=== PATIENT | male | born 1955 | race Caucasian/White ===

== ENCOUNTER 2019-05-05 23:35 | Emergency (ER) | payer OTHER, SELFPAY ==
[2019-05-05] MEDS ORDERED: NA CHLORIDE 0.9% 1,000 ML ONE (23:42)
[2019-05-05 23:58] LABS: Absolute Lymphocytes (CBC) 0.7 K/uL (0.7-4.9); Basophils % 1.9 % (0-1.3); Hematocrit 48.7 % (39.6-49.0); Lymphocytes % 13.8 % (15.3-44.8); RBC Red Blood Cell Count 4.82 M/uL (4.33-5.43)
[2019-05-06 00:09] LABS: Protime INR 0.89
[2019-05-06 00:29] LABS: ALT/SGPT 46 U/L (12-78); AST/SGOT 49 U/L (15-37); Albumin 2.9 g/dL (3.4-5.0); Alkaline Phosphatase 83 U/L (45-117); BUN Blood Urea Nitrogen 4 mg/dL (7-18); Bicarbonate 20 mmol/L (21-32); Bilirubin Direct 0.1 mg/dL (0-0.2); Bilirubin Total 0.3 mg/dL (0.2-1.0); Glucose Level 138 mg/dL (74-106); Potassium 3.1 mmol/L (3.5-5.1); Sodium Level 131 mmol/L (136-145)
[2019-05-06] MEDS ORDERED: PROPOFOL 200 MG/20 ML VIAL IV ONE (00:46)
--- NOTE | 2019-05-06 01:57 | ER ---
Nurse's Notes [facility] Name: Jaret Larry Age: 63 yrs Sex: Male : 1955 Arrival Date: 05/05/2019 Time: 23:37 Bed 4 Private MD: Diagnosis: Dislocation of other parts of right shoulder girdle;Alcohol abuse with intoxication Presentation: 05/05 23:28 Presenting complaint: EMS states: that pt was found on floor by room mate, No LOC . fc Upon their arrival pt complaining of right shoulder pain, it was noted to be dislocated. Also pt was laying in puddle of what he said was rum and coke. Pt very intoxicated per her admission. Care prior to arrival: None. Mechanism of Injury: Fall from standing position. Trauma event details: Injury occurred in the [facility], Injury occurred: at home. Injury occurred: May 05, 2019. 23:28 Acuity: KAIA 2 23:28 Method Of Arrival: EMS: [facility] 23:28 Transition of care: patient was not received from another setting of care. Onset of fc symptoms was May 05, 2019. Risk Assessment: Do you want to hurt yourself or someone else? Patient reports no desire to harm self or others. Initial Sepsis Screen: Does the patient meet any 2 criteria? HR > 90 bpm. Yes Does the patient have a suspected source of infection? No. Patient's initial sepsis screen is negative. Trauma Activation: Not Applicable Physician: ED Physician; Name: ; Notified At: ; Arrived At: Physician: General Surgeon; Name: ; Notified At: ; Arrived At: Physician: Radiology; Name: ; Notified At: ; Arrived At: Physician: Respiratory; Name: ; Notified At: ; Arrived At: Physician: Lab; Name: ; Notified At: ; Arrived At: Historical: - Allergies: 23:49 No Known Allergies; fc - Home Meds: 23:49 None [Active]; fc - PMHx: 23:49 Alcoholism; Hypertension; fc - PSHx: 23:49 None; fc - Immunization history: Last tetanus immunization: unknown. - Social history:: Smoking status: Patient uses tobacco products, smokes one pack cigarettes per day. Patient uses alcohol, on a daily basis. Patient/guardian denies using street drugs. - Ebola Screening: : Patient negative for fever greater than or equal to 101.5 degrees Fahrenheit, and additional compatible Ebola Virus Disease symptoms Patient denies exposure to infectious person Patient denies travel to an Ebola-affected area in the 21 days before illness onset. Screenin:28 Abuse screen: Denies threats or abuse. Tuberculosis screening: No symptoms or risk fc factors identified. 23:48 Nutritional screening: No deficits noted. Fall Risk Fall in past 12 months (25 points). ea 23:48 Nutritional screening: No deficits noted. Fall Risk Fall in past 12 months (25 points). fc Secondary diagnosis (15 points) ETOH use. No IV (0 pts). Ambulatory Aid- None/Bed Rest/Nurse Assist (0 pts). Gait- Impaired (20 pts.). Mental Status- Overestimates/Forgets Limitations (15 pts.). Total Dawkins Fall Scale indicates High Risk Score (45 or more points). Fall prevention measures have been instituted. Side Rails Up X 2 Placed Close to Nursing Station Frequent Obs/Assessments Occuring As available patient and family educated on Fall Prevention Program and Strategies. Primary Survey: 23:38 NO uncontrolled hemorrhage observed. A: The patient is alert. Airway: patent. ea Breathing/Chest: Respiratory pattern: regular, Respiratory effort: spontaneous, unlabored. Circulation: Pulses: palpable right radial artery. Skin color: pink, Skin temperature: warm. Disability Alert. Exposure/Environment: All clothing and personal items were removed. Forensic evidence collection is not deemed to be indicated at this time. Items placed in patient belonging bag. There is no evidence of uncontrolled external bleeding. Obvious injury(ies) are noted at this time: bony deformity noted to left shoulder. 05/06 00:41 Reassessment Airway Airway Patent Breathing/Chest Respiratory pattern Regular ea Respiratory effort Spontaneous Unlabored Circulation Color [place] Temperature Warm. Secondary Survey: 05/05 23:39 HEENT: No deficits noted. Musculoskeletal: Bony deformity noted of right shoulder. ea Assessment: 23:40 General: Appears uncomfortable, Behavior is cooperative, Smells of alcohol. Pain: ea Complains of pain in right shoulder. Neuro: Level of Consciousness is awake, alert, obeys commands, Oriented to person, place, time, situation. Cardiovascular: Patient's skin is warm and dry. Respiratory: Airway is patent Respiratory effort is even, unlabored, Respiratory pattern is regular, symmetrical, Breath sounds are clear bilaterally. Derm: Skin is pink, warm \T\ dry. Musculoskeletal: Bony deformity noted of right shoulder. 05/06 00:00 Reassessment: Patient and/or family updated on plan of care and expected duration. Pain ea level reassessed. Patient is alert, oriented x 3, equal unlabored respirations, skin warm/dry/pink. Pt taken to CT. 01:41 Reassessment: Patient and/or family updated on plan of care and expected duration. Pain ea level reassessed. Patient is alert, oriented x 3, equal unlabored respirations, skin warm/dry/pink. Pt friend called for ride. 02:11 Reassessment: Patient and/or family updated on plan of care and expected duration. Pain ea level reassessed. Patient is alert, oriented x 3, equal unlabored respirations, skin warm/dry/pink. Discharge instruction given to patient, verbalized the understanding of instruction. Pt left ED ambulatory accompanied by friend. Pt tolerating well. Vital Signs: 05/05 23:28 Weight 68.04 kg; Height 5 ft. 6 in. (167.64 cm); Pain 8/10; fc 23:40 BP 134 / 81; Pulse 109; Resp 19; Temp 97.8(O); Pulse Ox 95% ; ea 05/06 00:40 BP 130 / 79; Pulse 95; Resp 20; Pulse Ox 95% ; ea 01:46 BP 121 / 72; Pulse 90; Resp 18; Pulse Ox 98% ; ea 05/05 23:28 Body Mass Index 24.21 (68.04 kg, 167.64 cm) fc Lucas Coma Score: 05/05 23:40 Eye Response: spontaneous(4). Verbal Response: oriented(5). Motor Response: obeys ea commands(6). Total: 15. 05/06 01:46 Eye Response: spontaneous(4). Verbal Response: oriented(5). Motor Response: obeys ea commands(6). Total: 15. Trauma Score (Adult): 05/05 23:40 Eye Response: spontaneous(1); Verbal Response: oriented(1); Motor Response: obeys ea commands(2); Systolic BP: > 89 mm Hg(4); Respiratory Rate: 10 to 29 per min(4); Bharathi Score: 15; Trauma Score: 12 05/06 01:46 Eye Response: spontaneous(1); Verbal Response: oriented(1); Motor Response: obeys ea commands(2); Systolic BP: > 89 mm Hg(4); Respiratory Rate: 10 to 29 per min(4); Lucas Score: 15; Trauma Score: 12 ED Course: 05/05 23:28 Patient has correct armband on for positive identification. Placed in gown. Bed in low fc position. Call light in reach. Side rails up X2. 23:28 Arm band placed on Patient placed in an exam room, on a stretcher. fc 23:28 Patient maintains SpO2 saturation greater than 95% on room air. fc 23:28 Thermoregulation: warm blanket given to patient. ea 23:30 Inserted saline lock: 20 gauge in left antecubital area, using aseptic technique. ea 23:37 Patient arrived in ED. cf2 23:38 Trent Lee MD is Attending Physician. tw4 23:41 Jeff Eller RN is Primary Nurse. rv 23:45 Triage completed. fc 23:54 X-ray completed. Portable x-ray completed in exam room. Patient tolerated procedure ls3 well. 23:56 Shoulder Right (2 View) XRAY In Process Unspecified. EDMS 05/06 01:10 CT Head C Spine In Process Unspecified. EDMS 01:45 No provider procedures requiring assistance completed. IV discontinued, intact, ea bleeding controlled, No redness/swelling at site. Pressure dressing applied. 02:02 Shoulder (1 View) XRAY In Process Unspecified. EDMS Administered Medications: 05/05 23:48 Drug: NS 0.9% 1000 ml Route: IV; Rate: 125 ml/hr; Site: left antecubital; rv 05/06 01:47 Follow up: Response: No adverse reaction; IV Status: Completed infusion; IV Intake: ea 500ml Intake: 01:47 IV: 500ml; Total: 500ml. ea 02:11 IV: 500ml (IV Fluid); Total: 1000ml. ea Outcome: 01:43 Discharge ordered by . tw4 02:11 Discharged to home ambulatory, with friend. ea 02:11 Condition: stable 02:11 Discharge instructions given to patient, Instructed on discharge instructions, follow up and referral plans. Demonstrated understanding of instructions, follow-up care. 02:11 Discharged to home ambulatory, with friend. rv 02:11 Condition: improved 02:11 Discharge instructions given to patient, Instructed on discharge instructions, follow up and referral plans. medication usage, Demonstrated understanding of instructions, follow-up care, medications, Prescriptions given X 1. 02:11 Patient's length of stay was not longer than 2 hours. ea 02:12 Patient left the ED. rv Signatures: Dispatcher [employer] EDMS Julia Loera RN RN fc Antunez, Elena, RN RN ea Wadley, Terrence, MD MD tw4 Jeff Eller RN RN rv Siler, Lynzie ls3 Paulina Pickard cf2
--- NOTE | 2019-05-06 01:58 | EDPHYS ---
Physician Documentation [facility] Name: Jaret Larry Age: 63 yrs Sex: Male : 1955 Arrival Date: 05/05/2019 Time: 23:37 Bed 4 Private MD: ED Physician Trent Lee HPI: 05/06 01:36 This 63 yrs old Male presents to ER via EMS with complaints of Fall Injury, tw4 Chest Pain. 01:36 Details of fall: The patient fell from an upright position, while standing. Onset: The tw4 symptoms/episode began/occurred today. Associated injuries: The patient sustained right arm, decreased range of motion, deformity. Severity of symptoms: At their worst the symptoms were moderate, in the emergency department the symptoms are unchanged. The patient has experienced similar episodes in the past, a few times. Historical: - Allergies: 05/05 23:49 No Known Allergies; fc - Home Meds: 23:49 None [Active]; fc - PMHx: 23:49 Alcoholism; Hypertension; fc - PSHx: 23:49 None; fc - Immunization history: Last tetanus immunization: unknown. - Social history:: Smoking status: Patient uses tobacco products, smokes one pack cigarettes per day. Patient uses alcohol, on a daily basis. Patient/guardian denies using street drugs. - Ebola Screening: : Patient negative for fever greater than or equal to 101.5 degrees Fahrenheit, and additional compatible Ebola Virus Disease symptoms Patient denies exposure to infectious person Patient denies travel to an Ebola-affected area in the 21 days before illness onset. ROS: 05/06 01:36 Constitutional: Negative for fever, chills, and weight loss, Cardiovascular: Negative tw4 for chest pain, palpitations, and edema, Respiratory: Negative for shortness of breath, cough, wheezing, and pleuritic chest pain, Abdomen/GI: Negative for abdominal pain, nausea, vomiting, diarrhea, and constipation, Skin: Negative for injury, rash, and discoloration, Neuro: Negative for headache, weakness, numbness, tingling, and seizure. MS/extremity: Positive for injury or acute deformity, decreased range of motion, deformity. Exam: 01:36 Constitutional: This is a well developed, well nourished patient who is awake, alert, tw4 and in no acute distress. Head/Face: Normocephalic, atraumatic. Chest/axilla: Normal chest wall appearance and motion. Nontender with no deformity. No lesions are appreciated. Cardiovascular: Regular rate and rhythm with a normal S1 and S2. No gallops, murmurs, or rubs. Normal PMI, no JVD. No pulse deficits. Respiratory: Lungs have equal breath sounds bilaterally, clear to auscultation and percussion. No rales, rhonchi or wheezes noted. No increased work of breathing, no retractions or nasal flaring. Abdomen/GI: Soft, non-tender, with normal bowel sounds. No distension or tympany. No guarding or rebound. No evidence of tenderness throughout. Back: No spinal tenderness. No costovertebral tenderness. Full range of motion. 01:36 Neuro: Awake and alert, GCS 15, oriented to person, place, time, and situation. Cranial nerves II-XII grossly intact. Motor strength 5/5 in all extremities. Sensory grossly intact. Cerebellar exam normal. Normal gait. Psych: Awake, alert, with orientation to person, place and time. Behavior, mood, and affect are within normal limits. 01:36 Musculoskeletal/extremity: Extremities: noted in the anterior aspect of right shoulder: decreased ROM, deformity. Vital Signs: 05/05 23:28 Weight 68.04 kg; Height 5 ft. 6 in. (167.64 cm); Pain 8/10; fc 23:40 BP 134 / 81; Pulse 109; Resp 19; Temp 97.8(O); Pulse Ox 95% ; ea 05/06 00:40 BP 130 / 79; Pulse 95; Resp 20; Pulse Ox 95% ; ea 01:46 BP 121 / 72; Pulse 90; Resp 18; Pulse Ox 98% ; ea 05/05 23:28 Body Mass Index 24.21 (68.04 kg, 167.64 cm) fc [place] Coma Score: 05/05 23:40 Eye Response: spontaneous(4). Verbal Response: oriented(5). Motor Response: obeys ea commands(6). Total: 15. 05/06 01:46 Eye Response: spontaneous(4). Verbal Response: oriented(5). Motor Response: obeys ea commands(6). Total: 15. Trauma Score (Adult): 05/05 23:40 Eye Response: spontaneous(1); Verbal Response: oriented(1); Motor Response: obeys ea commands(2); Systolic BP: > 89 mm Hg(4); Respiratory Rate: 10 to 29 per min(4); Bharathi Score: 15; Trauma Score: 12 05/06 01:46 Eye Response: spontaneous(1); Verbal Response: oriented(1); Motor Response: obeys ea commands(2); Systolic BP: > 89 mm Hg(4); Respiratory Rate: 10 to 29 per min(4); Bharathi Score: 15; Trauma Score: 12 Procedures: 04:17 Reduction: of the right shoulder, using traction, Immobilized with shoulder 4 immobilizer. Patient tolerated well. Post reduction film - reveals improved alignment. Moderate sedation: Pre-procedure assessment: ASA physical classification: I - healthy, no underlying organic disease, Airway assessment: able to hyperextend neck, able to maintain airway, can open mouth without difficulty, Mallampati classification of tongue size: I - faucial pillars, soft palate, and uvula can be fully visualized, Monitoring during procedure: ribbon cutter, continuous pulse oximetry, nurse at bedside at all times, Medications employed: Propofol, Post-procedure assessment: the patient is moderately sedated, Staples sedation score: 1 - patient anxious or agitated or both, Respiratory status: even and unlabored, a reversal agent was not used. MDM: 05/05 23:38 Patient medically screened. tw4 05/06 04:17 Differential diagnosis: closed head injury, fracture, multiple trauma. Data reviewed: 4 vital signs, nurses notes. Counseling: I had a detailed discussion with the patient and/or guardian regarding: the historical points, exam findings, and any diagnostic results supporting the discharge/admit diagnosis, lab results, radiology results. Special discussion: I discussed with the patient/guardian in detail that at this point there is no indication for admission to the hospital. It is understood, however, that if the symptoms persist or worsen the patient needs to return immediately for re-evaluation. 05/05 23:39 Order name: Acetaminophen 4 05/05 23:39 Order name: Basic Metabolic Panel tw4 05/05 23:39 Order name: CBC with Diff 4 05/05 23:39 Order name: ETOH Level 05/05 23:39 Order name: Hepatic Function 4 05/05 23:39 Order name: PT-INR; Complete Time: 01:00 [facility] 05/06 01:01 Interpretation: Within normal limits: PT 10.5. 05/05 23:39 Order name: Ptt, Activated; Complete Time: 01:00 [facility] 05/06 01:01 Interpretation: Within normal limits: PTT 27.3. 05/05 23:39 Order name: Salicylate 05/05 23:40 Order name: Acetaminophen Level; Complete Time: 01:00 [facility] 05/06 01:00 Interpretation: Within normal limits: ACETA < 2.0. 05/05 23:40 Order name: Basic Metabolic Panel; Complete Time: 01:00 [facility] 05/06 01:00 Interpretation: Normal except: K 3.1; CL 95; CO2 20; GLUC 138; BUN 4; NA 131. 05/05 23:40 Order name: CBC with Automated Diff; Complete Time: 01:00 [facility] 05/06 01:00 Interpretation: Normal except: MCV 101.1; LYM% 13.8; EOSINOPHIL % 4.6; BASO% 1.9. 05/05 23:40 Order name: Alcohol Serum/Plasma; Complete Time: 01:00 [facility] 05/06 01:00 Interpretation: Normal except: ETOH 364. 05/05 23:40 Order name: Liver (Hepatic) Function; Complete Time: 01:00 [facility] 05/06 01:00 Interpretation: Normal except: AST 49; ALB 2.9; GLOB 4.1; A/G 0.7. [facility] 05/05 23:39 Order name: EKG; Complete Time: 23:41 [facility] 05/05 23:39 Order name: EKG - Nurse/Tech; Complete Time: 23:48 [facility] 05/05 23:39 Order name: IV Saline Lock; Complete Time: 23:48 [facility] 05/05 23:39 Order name: Labs collected and sent; Complete Time: 23:48 [facility] 05/05 23:39 Order name: Shoulder Right (2 View) XRAY 05/05 23:39 Order name: CT Head C Spine 05/06 01:25 Order name: Shoulder (1 View) XRAY fc Administered Medications: 05/05 23:48 Drug: NS 0.9% 1000 ml Route: IV; Rate: 125 ml/hr; Site: left antecubital; rv 05/06 01:47 Follow up: Response: No adverse reaction; IV Status: Completed infusion; IV Intake: ea 500ml Disposition: 05/06/19 01:43 Discharged to Home. Impression: Dislocation of other parts of right shoulder girdle, Alcohol abuse with intoxication. - Condition is Stable. - Discharge Instructions: Alcohol Intoxication, Shoulder Dislocation. - Prescriptions for Ibuprofen 800 mg Oral Tablet - take 1 tablet by ORAL route every 12 hours As needed take with food; 20 tablet. - Medication Reconciliation Form, Thank You Letter, Antibiotic Education, Prescription Opioid Use form. - Follow up: Private Physician; When: Upon discharge from the Emergency Department; Reason: If symptoms return, Recheck today's complaints, Continuance of care. - Problem is new. - Symptoms have improved. Signatures: Dispatcher [employer] EDJulia Frias, RN RN Trent Lee MD MD tw4 Jeff Eller RN RN rv Antunez, Elena RN ea Corrections: (The following items were deleted from the chart) 01:44 01:43 05/06/2019 01:43 Discharged to Home. Impression: Dislocation of other parts of tw4 right shoulder girdle. Condition is Stable. Forms are Medication Reconciliation Form, Thank You Letter, Antibiotic Education, Prescription Opioid Use. Follow up: Private Physician; When: Upon discharge from the Emergency Department; Reason: If symptoms return, Recheck today's complaints, Continuance of care. Problem is new. Symptoms have improved. tw4 02:12 01:44 05/06/2019 01:43 Discharged to Home. Impression: Dislocation of other parts of rv right shoulder girdle; Alcohol abuse with intoxication. Condition is Stable. Discharge Instructions: Alcohol Intoxication, Shoulder Dislocation. Prescriptions for Ibuprofen 800 mg Oral Tablet - take 1 tablet by ORAL route every 12 hours As needed take with food; 20 tablet. and Forms are Medication Reconciliation Form, Thank You Letter, Antibiotic Education, Prescription Opioid Use. Follow up: Private Physician; When: Upon discharge from the Emergency Department; Reason: If symptoms return, Recheck today's complaints, Continuance of care. Problem is new. Symptoms have improved. tw4
--- NOTE | 2019-05-06 11:06 | RAD REPORT ---
EXAM DESCRIPTION: RAD - Shoulder Right 2 View - 05/05/2019 11:54 pm CLINICAL HISTORY: Right shoulder pain status post fall FINDINGS: Anterior dislocation humeral head. No fracture seen
--- NOTE | 2019-05-06 11:07 | RAD REPORT ---
EXAM DESCRIPTION: RAD - Shoulder 1 View - 05/06/2019 1:30 am CLINICAL HISTORY: Right shoulder dislocation FINDINGS: Previously described dislocation appears reduced. Hill-Sachs deformity present
--- NOTE | 2019-05-06 16:56 | EKG ---
Test Date: 2019-05-05 Test Time: 23:54:08 [employer]ator Special Items: ZACH MEASUREMENT RESULTS: Intervals: Rate: 102 PA: 136 QRSD: 82 QT: 370 QTc: 482 [place]: P: 61 PA: 136 QRS: 56 T: 53 INTERPRETIVE STATEMENTS: Sinus tachycardia Nonspecific ST and T wave abnormality Abnormal ECG No previous ECG available for comparison Electronically Signed On 05-06-19 16:55:55 CDT by Jesus Alberto Weber
--- NOTE | 2019-05-07 09:46 | RAD REPORT ---
EXAM DESCRIPTION: CT - Head C Spine Mpr Wo Con - 05/06/2019 12:53 am CLINICAL HISTORY: Trauma. COMPARISON: None. TECHNIQUE: CT scan of the brain and cervical spine without IV contrast. This exam was performed acco rding to our departmental dose-optimization program, which includes automated exposure control, adjus tment of the mA and/or kV according to patient size and/or use of iterative reconstruction technique. FINDINGS: BRAIN: There are scattered areas of hypoattenuation within the periventricular white matter, which likely re present chronic microvascular ischemia. No evidence of acute infarction, intracranial hemorrhage, ext ra-axial fluid collection, or midline shift. No air-fluid levels are seen in the paranasal sinuses to suggest acute sinusitis. No depressed skull fracture. CERVICAL SPINE: No acute cervical fracture or prevertebral soft tissue swelling. There is straightening of the normal cervical lordosis, which may be due to cervical collar, muscle spasm, or patient positioning. Multil evel degenerative disc disease along with facet arthropathy is present. There are multilevel disc bul ges but without advanced canal stenosis identified. IMPRESSION: 1. No acute intracranial hemorrhage. 2. No acute fracture or subluxation of the cervical spine. Electronically signed by: Arron Salazar MD 05/06/2019 12:47 AM CDT Due to temporary technical issues with the PACS/Fluency reporting system, reports are being signed by the in house radiologist as a courtesy to ensure prompt reporting. The interpreting radiologist is f ully responsible for the content of the report.
== END 2019-05-06 02:12 | disposition home or self-care (01) ==
LOC: ER 23:35
PROC: 0RSJXZZ Reposition Right Shoulder Joint, External Approach (ICD-10-PCS; principal; 2019-05-06)
DX: S43.304A Dislocation of unspecified parts of right shoulder girdle, initial encounter (principal); F10.229 Alcohol dependence with intoxication, unspecified; W19.XXXA Unspecified fall, initial encounter; Y93.89 Activity, other specified; Y92.9 Unspecified place or not applicable; I10 Essential (primary) hypertension; F17.210 Nicotine dependence, cigarettes, uncomplicated
CPT/HCPCS: 23655; 96361; 93005; 85025; 80048; 36415; 80320; 80329 ×2; 85610; 80076; 85730; 70450; 72125; 73020; 73030; 96360; 99284; J2704; J7030

== ENCOUNTER 2019-08-01 17:46 | Emergency (ER) | payer OTHER ==
--- NOTE | 2019-08-01 19:27 | RAD REPORT ---
EXAM DESCRIPTION: RAD - Forearm Left - 08/01/2019 6:52 pm CLINICAL HISTORY: Left forearm pain status post injury FINDINGS: An impacted comminuted fracture involves the distal radius with moderate displacement of f racture fragments. Mildly displaced fracture involves the distal ulna. Avulsion fracture of the ulnar styloid process is present. No dislocation seen Osteoporosis
--- NOTE | 2019-08-01 19:29 | RAD REPORT ---
EXAM DESCRIPTION: RAD -Hand Left 3 View - 08/01/2019 6:51 pm CLINICAL HISTORY: Left hand pain status post injury FINDINGS: An impacted comminuted fracture involves the distal radius with moderate displacement of fracture fra gments. Mildly displaced fracture involves the distal ulna. Avulsion fracture of the ulnar styloid process is present. No dislocation seen Osteoporosis
--- NOTE | 2019-08-01 20:22 | ER ---
Nurse's Notes [facility] Name: Jaret Larry Age: 64 yrs Sex: Male : 1955 Arrival Date: 08/01/2019 Time: 17:48 Bed 28 Private MD: Reji Dyson F Diagnosis: Distal Radius Fracture;Distal Ulnar Fracture Presentation: 08/01 17:52 Presenting complaint: Left hand pain and swelling after fall onto outstretched hand 2 hb weeks ago. Transition of care: patient was not received from another setting of care. Onset of symptoms was August 01, 2019. Risk Assessment: Do you want to hurt yourself or someone else? Patient reports no desire to harm self or others. Care prior to arrival: None. 17:52 Method Of Arrival: Ambulatory hb 17:52 Acuity: KAIA 4 hb 18:00 Initial Sepsis Screen: Does the patient meet any 2 criteria? No. Patient's initial tr5 sepsis screen is negative. Does the patient have a suspected source of infection? No. Patient's initial sepsis screen is negative. Historical: - Allergies: 17:52 No Known Allergies; hb - PMHx: 17:52 Alcoholism; Hypertension; hb - PSHx: 17:52 None; hb - Immunization history:: Adult Immunizations up to date. - Social history:: Smoking status: Patient uses tobacco products, smokes one pack cigarettes per day. - Ebola Screening: : No symptoms or risks identified at this time. Screenin:00 Abuse screen: Denies threats or abuse. Nutritional screening: No deficits noted. tr5 Tuberculosis screening: No symptoms or risk factors identified. Fall Risk None identified. Assessment: 18:00 General: Appears in no apparent distress. Behavior is calm, cooperative, appropriate tr5 for age. Pain: Complains of pain in left hand Pain does not radiate. Neuro: Level of Consciousness is awake, alert, obeys commands, Oriented to person, place, time. Cardiovascular: Heart tones present Capillary refill < 3 seconds Pulses are all present. Edema is 3+ to left hand and left fingers. Respiratory: Airway is patent Respiratory effort is even, unlabored, Respiratory pattern is regular, symmetrical. GI: No signs and/or symptoms were reported involving the gastrointestinal system. : No signs and/or symptoms were reported regarding the genitourinary system. EENT: No signs and/or symptoms were reported regarding the EENT system. Derm: No signs and/or symptoms reported regarding the dermatologic system. Musculoskeletal: No signs and/or symptoms reported regarding the musculoskeletal system. Vital Signs: 17:52 BP 143 / 103; Pulse 102; Resp 20; Temp 97.5; Pulse Ox 97% ; Weight 68.04 kg; Height 5 hb ft. 6 in. (167.64 cm); Pain 3/10; 17:52 Body Mass Index 24.21 (68.04 kg, 167.64 cm) hb ED Course: 17:48 Patient arrived in ED. mr 17:48 Reji Dyson MD is Private Physician. mr 17:51 Arm band placed on. hb 17:52 Triage completed. hb 18:00 Patient has correct armband on for positive identification. Call light in reach. Side tr5 rails up X 1. Side rails up X2. 18:02 Jamey Burks RN is Primary Nurse. tr5 18:08 Francesco Briggs PA is PHCP. [facility] 18:08 Wayne Terrazas MD is Attending Physician. jmm 18:51 Hand Left 3 View XRAY In Process Unspecified. EDMS 18:51 Forearm Left XRAY In Process Unspecified. EDMS 20:20 Oneil Cali MD is Referral Physician. [facility] 20:25 Orthoglass splint: Sugar tong splint applied on left arm. Sling applied to left arm. lt1 20:35 No provider procedures requiring assistance completed. Patient did not have IV access tr5 during this emergency room visit. Administered Medications: No medications were administered Outcome: 20:21 Discharge ordered by . [facility] 20:35 Discharged to home ambulatory. tr5 20:35 Condition: stable 20:35 Discharge instructions given to patient, Instructed on discharge instructions, follow up and referral plans. the need for admit, Demonstrated understanding of instructions, follow-up care, medications. 20:37 Patient left the ED. tr5 Signatures: Dispatcher [employer] EDMS Francesco Briggs PA PA jmm Rivera, Mary mr RoseNicol RN RN hb Tran, Leah lt1 Jamey Burks RN RN tr5
--- NOTE | 2019-08-01 20:22 | EDPHYS ---
Physician Documentation [facility] Name: Jaret Larry Age: 64 yrs Sex: Male : 1955 Arrival Date: 08/01/2019 Time: 17:48 Bed 28 Private MD: Reji Dyson F ED Physician Wayne Terrazas HPI: 08/01 18:15 This 64 yrs old Male presents to ER via Ambulatory with complaints of Hand jmm Swelling. 18:15 The patient or guardian reports injury, pain. Onset: The symptoms/episode jmm began/occurred acutely, 2 week(s) ago. Modifying factors: The symptoms are alleviated by nothing, the symptoms are aggravated by nothing. Associated signs and symptoms: Pertinent positives: swelling. This is a 64 year old male with a history of htn that presents to the ED with complaints of left hand swelling and wrist pain which began after a fall 2 weeks prior. patient states he tripped down 5 steps landing directly on his left hand. denies other injury. . Historical: - Allergies: 17:52 No Known Allergies; hb - PMHx: 17:52 Alcoholism; Hypertension; hb - PSHx: 17:52 None; hb - Immunization history:: Adult Immunizations up to date. - Social history:: Smoking status: Patient uses tobacco products, smokes one pack cigarettes per day. - Ebola Screening: : No symptoms or risks identified at this time. ROS: 18:15 Constitutional: Negative for fever, chills, and weight loss, Cardiovascular: Negative jmm for chest pain, palpitations, and edema, Respiratory: Negative for shortness of breath, cough, wheezing, and pleuritic chest pain. 18:15 MS/extremity: Positive for injury or acute deformity, pain, swelling. 18:15 All other systems are negative. Exam: 18:15 Constitutional: This is a well developed, well nourished patient who is awake, alert, jmm and in no acute distress. Head/Face: atraumatic. Eyes: EOMI, no conjunctival erythema appreciated ENT: Moist Mucus Membranes Neck: Trachea midline, Supple Chest/axilla: Normal chest wall appearance and motion. Cardiovascular: Regular rate and rhythm. No edema appreciated Respiratory: Normal respirations, no respiratory distress appreciated Abdomen/GI: Non distended, soft Back: Normal ROM Skin: General appearance color normal 18:15 Musculoskeletal/extremity: swelling noted to the left hand, pain is appreciated at the left wrist, left forearm diffusely with mild swelling. 18:15 Skin: Appearance: Color: normal in color. 18:15 Neuro: Orientation: is normal, Mentation: is normal, Memory: is normal. 18:15 Psych: Behavior/mood is pleasant, cooperative. Vital Signs: 17:52 BP 143 / 103; Pulse 102; Resp 20; Temp 97.5; Pulse Ox 97% ; Weight 68.04 kg; Height 5 hb ft. 6 in. (167.64 cm); Pain 3/10; 17:52 Body Mass Index 24.21 (68.04 kg, 167.64 cm) hb MDM: 18:11 Patient medically screened. [facility] 20:19 Data reviewed: vital signs, nurses notes. Counseling: I had a detailed discussion with [facility] the patient and/or guardian regarding: the historical points, exam findings, and any diagnostic results supporting the discharge/admit diagnosis, radiology results, the need for outpatient follow up, to return to the emergency department if symptoms worsen or persist or if there are any questions or concerns that arise at home. ED course: Left UE NVI. Patient advised to follow up with ortho and otherwise given strict return precautions. Patient understood and agrees with the plan of care. . 08/01 18:12 Order name: Hand Left 3 View XRAY; Complete Time: 19:38 [facility] 08/01 18:12 Order name: Forearm Left XRAY; Complete Time: 19:38 [facility] 08/01 19:16 Order name: Sugar Tong Forearm Splint; Complete Time: 20:25 [facility] 08/01 19:16 Order name: Sling; Complete Time: 20:25 [facility] Administered Medications: No medications were administered Disposition: 08/01/19 20:21 Discharged to Home. Impression: Distal Radius Fracture, Distal Ulnar Fracture. - Condition is Stable. - Discharge Instructions: Radial Fracture, Ulnar Fracture. - Medication Reconciliation Form, Thank You Letter, Antibiotic Education, Prescription Opioid Use form. - Follow up: Oneil Cali MD; When: 1 - 2 days; Reason: Recheck today's complaints, Continuance of care, Re-evaluation by your physician. Addendum: 08/04/2019 19:32 Co-signature as Attending Physician, Wayne Terrazas MD. r n Signatures: Dispatcher [employer] EDFrancesco Thornton PA PA jmm Nieto, Roman, MD MD rn Baxter, Heather, RN RN hb Rodriguez, Tommie, RN RN tr5 Corrections: (The following items were deleted from the chart) 08/01 20:37 20:21 08/01/2019 20:21 Discharged to Home. Impression: Distal Radius Fracture; Distal tr5 Ulnar Fracture. Condition is Stable. Forms are Medication Reconciliation Form, Thank You Letter, Antibiotic Education, Prescription Opioid Use. Follow up: Oneil Cali; When: 1 - 2 days; Reason: Recheck today's complaints, Continuance of care, Re-evaluation by your physician. rosa
== END 2019-08-01 20:37 | disposition home or self-care (01) ==
LOC: ER 17:46
PROC: 2W3DX1Z Immobilization of Left Lower Arm using Splint (ICD-10-PCS; principal; 2019-08-01)
DX: S52.602A Unspecified fracture of lower end of left ulna, initial encounter for closed fracture (principal); S52.502A Unspecified fracture of the lower end of left radius, initial encounter for closed fracture; W01.0XXA Fall on same level from slipping, tripping and stumbling without subsequent striking against object, initial encounter; Y93.9 Activity, unspecified; Y92.9 Unspecified place or not applicable; F17.210 Nicotine dependence, cigarettes, uncomplicated
CPT/HCPCS: 99283

== ENCOUNTER 2021-12-12 00:18 | Emergency (ER) | payer OTHER ==
--- OUTSIDE RECORDS SUMMARY | 2021-12-12 00:20 | XMS REPORT | Continuity of Care Document ---
:1955 Author Organization [facility] t Address [address] [place] [address] Care Team Providers Name Role Phone TERRIE BARRIOS Primary Care Physician Unavailable Kasandra SOLIZ Attending Clinician Unavailable Payers Payer Name Policy Type Policy Number Effective Date Expiration Date S [place] MEDICARE PART A [id number] 2018 \T\ B 00:00:00 Problems This patient has no known problems. Allergies, Adverse Reactions, Alerts Allergy Allergy Status Severity Reaction(s) Onset Inactive Treating Comm ents Source Name Type Date Date Clinician NO KNOWN Drug [facility] Medications This patient has no known medications. Procedures This patient has no known procedures. Encounters Start End Encounter Admission Attending Care Care Encounter Source Date/Time Date/Time Type Type Clinicians Facility Department ID 2019-08-29 2019-08-29 Outpatient [facility] [id number] [employer] 13:22:23 23:59:00 ION [facility] Results This patient has no known results.
--- NOTE | 2021-12-12 03:10 | ER ---
Nurse's Notes [facility] Name: Jaret Larry Age: 66 yrs Sex: Male : 1955 Arrival Date: 12/12/2021 Time: 00:20 Bed 4 Private MD: Diagnosis: Other dislocation of right shoulder joint;Pain in right shoulder Presentation: 12/12 00:20 Chief complaint: EMS states: woke up to his R shoulder being dislocated. Coronavirus sm5 screen: Vaccine status: Patient reports being unvaccinated. Ebola Screen: No symptoms or risks identified at this time. Initial Sepsis Screen: Does the patient meet any 2 criteria? No. Patient's initial sepsis screen is negative. Does the patient have a suspected source of infection? No. Patient's initial sepsis screen is negative. Risk Assessment: Do you want to hurt yourself or someone else? Patient reports no desire to harm self or others. Onset of symptoms was December 12, 2021. 00:20 Method Of Arrival: EMS: [facility] 00:20 Acuity: KAIA 4 sm5 Triage Assessment: 00:22 General: Appears in no apparent distress. Behavior is cooperative. Pain: Complains of sm5 pain in right shoulder. Neuro: No deficits noted. Level of Consciousness is awake, alert, obeys commands, Oriented to person, place, time, situation. Cardiovascular: No deficits noted. Capillary refill < 3 seconds Patient's skin is warm and dry. Musculoskeletal: shoulder dislocation. Historical: - Allergies: 00:21 No Known Allergies; sm5 - Home Meds: 00:21 aspirin 81 mg Oral tab [Active]; sm5 - PMHx: 00:21 Alcoholism; Hypertension; Chronic obstructive lung disease; sm5 - Immunization history:: Client reports having NOT received the Covid vaccine. Flu vaccine is not up to date. - Social history:: Smoking status: Patient reports the use of cigarette tobacco products, smokes one pack cigarettes per day. Patient/guardian denies using alcohol, the patient reports quitting approximately 1.5 years ago. Screenin:24 Abuse screen: Denies threats or abuse. Denies injuries from another. Nutritional sm5 screening: No deficits noted. Tuberculosis screening: No symptoms or risk factors identified. Fall Risk None identified. Assessment: 01:00 Reassessment: Patient and/or family updated on plan of care and expected duration. Pain sm5 level reassessed. Patient is alert, oriented x 3, equal unlabored respirations, skin warm/dry/pink. 02:07 Reassessment: No changes from previously documented assessment. sm5 03:13 Reassessment: No changes from previously documented assessment. Patient states feeling sm5 better. Vital Signs: 00:20 BP 203 / 89; Pulse 98; Resp 18; Temp 98.4(O); Pulse Ox 100% on R/A; Weight 68.04 kg; sm5 Height 5 ft. 6 in. (167.64 cm); 02:57 BP 188 / 79; Pulse 55; Resp 17; Pulse Ox 97% on R/A; sm5 00:20 Body Mass Index 24.21 (68.04 kg, 167.64 cm) 5 ED Course: 00:20 Patient arrived in ED. sm5 00:21 Triage completed. sm5 00:22 Arm band placed on right wrist. sm5 00:24 Patient has correct armband on for positive identification. Bed in low position. Call 5 light in reach. Side rails up X 1. 00:24 No provider procedures requiring assistance completed. Shoulder immobilizer applied on sm5 right shoulder. 00:25 Leo Fuller DO is Attending Physician. ms3 00:36 Radha Kirk, DUDLEY is Primary Nurse. sm5 01:53 Shoulder Right 2 View In Process Unspecified. EDMS 03:08 Oneil Cali MD is Referral Physician. ms3 03:13 Patient did not have IV access during this emergency room visit. sm5 Administered Medications: No medications were administered Outcome: 03:09 Discharge ordered by . ms3 03:13 Discharged to home ambulatory. sm5 03:13 Condition: stable 03:13 Discharge instructions given to patient, Instructed on discharge instructions, follow up and referral plans. Demonstrated understanding of instructions, follow-up care. 03:14 Patient left the ED. 5 Signatures: Dispatcher [employer] EDMS Leo Fuller DO DO ms3 Radha Kirk, RN RN 5
--- NOTE | 2021-12-12 03:10 | EDPHYS ---
Physician Documentation [facility] Name: Jaret Larry Age: 66 yrs Sex: Male : 1955 Arrival Date: 12/12/2021 Time: 00:20 Bed 4 Private MD: ED Physician Leo Fuller HPI: 12/12 01:55 This 66 yrs old Male presents to ER via EMS with complaints of Shoulder dislocation. ms3 01:55 The patient or guardian complains of pain, that is acute. right shoulder. Context: The ms3 problem was sustained at home, resulted from an unknown reason, The patient experiences decreased range of motion, The patient reports no obvious deformity. Onset: The symptoms/episode began/occurred acutely, While sleeping. Modifying factors: the symptoms are alleviated by nothing. The symptoms are aggravated by movement. Associated signs and symptoms: The patient has no apparent associated signs or symptoms. Severity of symptoms: At their worst the symptoms were severe, in the emergency department the symptoms are unchanged. 66-year-old male presents via report EMS for right shoulder dislocation. Patient states his pain is a 10/10 and throbbing. Patient states movement makes the pain worse. Patient denies alleviating factors. Patient states he has a history of shoulder dislocations. Patient states while he was asleep his shoulder became dislocated.. Historical: - Allergies: 00:21 No Known Allergies; sm5 - Home Meds: 00:21 aspirin 81 mg Oral tab [Active]; sm5 - PMHx: 00:21 Alcoholism; Hypertension; Chronic obstructive lung disease; sm5 - Immunization history:: Client reports having NOT received the Covid vaccine. Flu vaccine is not up to date. - Social history:: Smoking status: Patient reports the use of cigarette tobacco products, smokes one pack cigarettes per day. Patient/guardian denies using alcohol, the patient reports quitting approximately 1.5 years ago. ROS: 01:55 Constitutional: Negative for fever, and chills. Eyes: Negative for injury, pain, ms3 redness, and discharge, Neck: Negative for injury, pain, and swelling, Cardiovascular: Negative for chest pain, and palpitations. Respiratory: Negative for shortness of breath, cough, wheezing, and pleuritic chest pain, Abdomen/GI: Negative for abdominal pain, nausea, vomiting, diarrhea, and constipation, Skin: Negative for injury, rash, and discoloration, Neuro: Negative for headache, weakness, numbness, tingling. 01:55 MS/extremity: Positive for injury or acute deformity, pain, of the anterior aspect of right shoulder and posterior aspect of right shoulder. 01:55 All other systems are negative. Exam: 01:55 Constitutional: This is a well developed, well nourished patient who is awake, alert, ms3 and in no acute distress. Head/Face: Normocephalic, atraumatic. Eyes: Pupils equal round and reactive to light, extra-ocular motions intact. Lids and lashes normal. Conjunctiva and sclera are non-icteric and not injected. Periorbital areas with no swelling, redness, or edema. Neck: Trachea midline, no cervical lymphadenopathy. Supple, full range of motion without nuchal rigidity, or vertebral point tenderness. No Meningismus. Chest/axilla: Normal chest wall appearance and motion. Nontender with no deformity. Cardiovascular: Regular rate and rhythm with a normal S1 and S2. No gallops, murmurs, or rubs. Normal PMI, no JVD. No pulse deficits. Respiratory: Lungs have equal breath sounds bilaterally, clear to auscultation and percussion. No rales, rhonchi or wheezes noted. No increased work of breathing, no retractions or nasal flaring. Abdomen/GI: Soft, non-tender, with normal bowel sounds. No distension or tympany. No guarding or rebound. No evidence of tenderness throughout. Skin: Warm, dry with normal turgor. Normal color with no rashes, no lesions, and no evidence of cellulitis. 01:55 Musculoskeletal/extremity: Extremities: noted in the right shoulder: deformity, pain, ROM: limited active range of motion, in the right shoulder, limited passive range of motion, in the right shoulder, Circulation is intact in all extremities. Sensation intact. Compartment Syndrome exam of affected extremity: is normal. Joints: the right shoulder displays deformity. Vital Signs: 00:20 BP 203 / 89; Pulse 98; Resp 18; Temp 98.4(O); Pulse Ox 100% on R/A; Weight 68.04 kg; sm5 Height 5 ft. 6 in. (167.64 cm); 02:57 BP 188 / 79; Pulse 55; Resp 17; Pulse Ox 97% on R/A; sm5 00:20 Body Mass Index 24.21 (68.04 kg, 167.64 cm) sm5 Procedures: 02:01 Reduction: of the right shoulder, using Suppination and Adduction, Immobilized with ms3 shoulder immobilizer. Patient tolerated well. Post reduction film - reveals normal alignment. MDM: 00:25 Patient medically screened. ms3 02:01 Differential diagnosis: Anterior dislocation with fracture, humeral head fracture, ms3 glenoid fracture. 03:09 Data reviewed: vital signs, nurses notes, radiologic studies, plain films. Counseling: ms3 I had a detailed discussion with the patient and/or guardian regarding: the historical points, exam findings, and any diagnostic results supporting the discharge/admit diagnosis, radiology results, the need for outpatient follow up, to return to the emergency department if symptoms worsen or persist or if there are any questions or concerns that arise at home. ED course: Discussed postreduction x-ray with patient. Patient shoulder remains reduced. Patient placed in shoulder immobilizer. Patient to follow-up with Dr. Elliott in 2 to 3 days. Patient understands and agrees with plan. All questions were answered. Return precautions discussed include worsening symptoms, or any other concerns. On reevaluation patient's right hand is neurovascularly intact, patient is alert and oriented x4, in no apparent distress, nontoxic-appearing.. 12/12 01:19 Order name: Shoulder Right 2 View EDMS 12/12 00:24 Order name: Shoulder Immobilizer; Complete Time: 00:24 5 Administered Medications: No medications were administered Disposition Summary: 12/12/21 03:09 Discharge Ordered Location: Home ms3 Problem: new ms3 Symptoms: are resolved ms3 Condition: Stable ms3 Diagnosis - Other dislocation of right shoulder joint ms3 - Pain in right shoulder ms3 Followup: ms3 - With: Oneil Elliott MD - When: 2 - 3 days - Reason: Re-evaluation by your physician Discharge Instructions: - Discharge Summary Sheet ms3 - Shoulder Pain, [id number] ms3 - Shoulder Dislocation, [id number] ms3 Forms: - Medication Reconciliation Form ms3 - Thank You Letter ms3 - Antibiotic Education ms3 - Prescription Opioid Use ms3 Signatures: Dispatcher [employer] EDME Leo Fuller DO DO ms3 Radha Kirk RN RN sm5 Corrections: (The following items were deleted from the chart) 01:54 01:34 Shoulder Right 2 View+[email or web address] ordered. EDMS EDMS
[2021-12-12 03:59] VITALS: TEMP 98.4
[2021-12-12 04:00] VITALS: BP 188/79; O2SAT 97
--- NOTE | 2021-12-13 23:05 | RAD REPORT ---
EXAM DESCRIPTION: RAD - Shoulder Right 2 View - 12/12/2021 1:51 am CLINICAL HISTORY: 66 years Male, DISLOCATION REDUCTION COMPARISON: None. FINDINGS: No evidence of an acute fracture or dislocation. Calcific granuloma in the right upper lobe is present. IMPRESSION: No evidence for an acute fracture or dislocation. Electronically signed by: Jonny Bojorquez MD 12/12/2021 2:41 AM CDT Due to temporary technical issues with the PACS/Fluency reporting system, reports are being signed by the in house radiologists without review as a courtesy to insure prompt reporting. The interpreting radiologist is fully responsible for the content of the report.
== END 2021-12-12 03:14 | disposition home or self-care (01) ==
LOC: ER 00:18
PROC: 0RSJXZZ Reposition Right Shoulder Joint, External Approach (ICD-10-PCS; principal; 2021-12-12)
DX: S43.084A Other dislocation of right shoulder joint, initial encounter (principal); I10 Essential (primary) hypertension; F10.20 Alcohol dependence, uncomplicated; J44.9 Chronic obstructive pulmonary disease, unspecified; F17.210 Nicotine dependence, cigarettes, uncomplicated; Z79.82 Long term (current) use of aspirin
CPT/HCPCS: 99283

== ENCOUNTER 2021-12-19 21:05 | Emergency (ER) | payer OTHER ==
[2021-12-19 21:25] LABS: Absolute Lymphocytes (CBC) 1.7 K/uL (0.7-4.9); Hematocrit 44.9 % (39.6-49.0); Lymphocytes % 19.9 % (15.3-44.8); MPV 8.9 fL (7.6-11.3); RBC Red Blood Cell Count 4.84 M/uL (4.33-5.43)
[2021-12-19 21:32] LABS: Protime INR 1.04
[2021-12-19] MEDS ORDERED: ONDANSETRON 4 MG/2 ML VIAL ONE (21:42)
[2021-12-19 21:55] LABS: ALT/SGPT 24 U/L (12-78); AST/SGOT 20 U/L (15-37); Albumin 3.4 g/dL (3.4-5.0); Alkaline Phosphatase 108 U/L (45-117); BUN Blood Urea Nitrogen 12 mg/dL (7-18); Bicarbonate 20 mmol/L (21-32); Bilirubin Total 0.2 mg/dL (0.2-1.0); Glucose Level 210 mg/dL (74-106); Lipase 197 U/L (73-393); Magnesium 2.3 mg/dL (1.8-2.4); NT PRO-BNP 1395 pg/mL (<125); Protein, Total 7.4 g/dL (6.4-8.2); Sodium Level 133 mmol/L (136-145); Troponin High Sensitivity 26.3 pg/mL (<58.9)
--- NOTE | 2021-12-19 21:55 | RAD REPORT ---
EXAM DESCRIPTION: RAD - Chest Single View - 12/19/2021 9:33 pm CLINICAL HISTORY: CHEST PAIN COMPARISON: None available TECHNIQUE: AP portable chest image was obtained 12/19/2021 9:33 pm . FINDINGS: Mildly prominent interstitial pattern is likely baseline. No focal consolidation or suspic ious mass. Dense calcified granuloma in the lateral right lung field. Heart and vasculature are gerard l. No measurable pleural effusion and no pneumothorax. No acute bony abnormality seen. No acute aorti c findings suspected. IMPRESSION: No acute cardiopulmonary process.
[2021-12-19 21:57] LABS: Bilirubin Direct < 0.1 mg/dL (0-0.2)
[2021-12-19 22:03] LABS: Potassium 2.9 mmol/L (3.5-5.1)
--- OUTSIDE RECORDS SUMMARY | 2021-12-19 22:26 | XMS REPORT | Continuity of Care Document ---
:1955 Author Organization [facility] t Address [address] [place] [address] Care Team Providers Name Role Phone TERRIE BARRIOS Primary Care Physician Unavailable Kasandra SOLIZ Attending Clinician Unavailable Payers Payer Name Policy Type Policy Number Effective Date Expiration Date S [place] MEDICARE PART A [id number] 2018 \T\ B 00:00:00 Problems This patient has no known problems. Allergies, Adverse Reactions, Alerts Allergy Allergy Status Severity Reaction(s) Onset Inactive Treating Comm ents Source Name Type Date Date Clinician NO KNOWN Drug [facility] Medications This patient has no known medications. Procedures This patient has no known procedures. Encounters Start End Encounter Admission Attending Care Care Encounter Source Date/Time Date/Time Type Type Clinicians Facility Department ID 2019-08-29 2019-08-29 Outpatient NANY SOLIZ [facility] [id number] [employer] 13:22:23 23:59:00 ION [facility] Results This patient has no known results.
[2021-12-19] MEDS ORDERED: POTASSIUM 25 MEQ EFFERV TAB ONE (22:49)
[2021-12-19] MEDS ORDERED: METOPROLOL TARTRATE 5 MG/5 ML INJ IV ONE (22:49)
--- NOTE | 2021-12-19 23:35 | EDPHYS ---
Physician Documentation [facility] Name: Jaret Larry Age: 66 yrs Sex: Male : 1955 Arrival Date: 12/19/2021 Time: 21:07 Bed 28 Private MD: ED Physician Jonny High HPI: 12/19 21:16 This 66 yrs old Male presents to ER via Unassigned with complaints of Chest Pain. mh7 21:16 The patient or guardian reports chest pain that is located primarily in the substernal mh7 area. Onset: today, at 20:00. The pain radiates to left back. Associated signs and symptoms: Pertinent positives: nausea, shortness of breath, Pertinent negatives: abdominal pain, cough, diaphoresis, dizziness, headache, lower extremity pain, lower extremity swelling, lightheadedness, near syncope, palpitations, recent travel, syncope, vomiting. The chest pain is described as sharp. Duration: The patient or guardian reports multiple episodes, that are intermittent, that wax and wane, with no pattern. Modifying factors: The symptoms are alleviated by ASA, 325mg X2. NTG, X1. the symptoms are aggravated by nothing. Severity of pain: At its worst the pain was moderate today, in the emergency department the pain has improved moderately. EMS care prior to arrival includes: nitroglycerin, x 1. Historical: - Allergies: 22:56 No Known Allergies; jb4 - Home Meds: 22:56 aspirin 81 mg Oral tab [Active]; jb4 - PMHx: 22:56 Alcoholism; Hypertension; Chronic obstructive lung disease; jb4 ROS: 21:16 Constitutional: Negative for fever, chills, and weight loss, Eyes: Negative for injury, mh7 pain, redness, and discharge, ENT: Negative for injury, pain, and discharge, Neck: Negative for injury, pain, and swelling, Abdomen/GI: Negative for abdominal pain, nausea, vomiting, diarrhea, and constipation, : Negative for injury, bleeding, discharge, and swelling, MS/Extremity: Negative for injury and deformity, Skin: Negative for injury, rash, and discoloration, Neuro: Negative for headache, weakness, numbness, tingling, and seizure, Psych: Negative for depression, anxiety, suicide ideation, homicidal ideation, and hallucinations, Allergy/Immunology: Negative for hives, rash, and allergies, Endocrine: Negative for neck swelling, polydipsia, polyuria, polyphagia, and marked weight changes, Hematologic/Lymphatic: Negative for swollen nodes, abnormal bleeding, and unusual bruising. Exam: 21:16 Head/Face: Normocephalic, atraumatic. Eyes: Pupils equal round and reactive to light, mh7 extra-ocular motions intact. Lids and lashes normal. Conjunctiva and sclera are non-icteric and not injected. Cornea within normal limits. Periorbital areas with no swelling, redness, or edema. Neck: Trachea midline, no thyromegaly or masses palpated, and no cervical lymphadenopathy. Supple, full range of motion without nuchal rigidity, or vertebral point tenderness. No Meningismus. Chest/axilla: Normal chest wall appearance and motion. Nontender with no deformity. No lesions are appreciated. Respiratory: Lungs have equal breath sounds bilaterally, clear to auscultation and percussion. No rales, rhonchi or wheezes noted. No increased work of breathing, no retractions or nasal flaring. Abdomen/GI: Soft, non-tender, with normal bowel sounds. No distension or tympany. No guarding or rebound. No evidence of tenderness throughout. Back: No spinal tenderness. No costovertebral tenderness. Full range of motion. Skin: Warm, dry with normal turgor. Normal color with no rashes, no lesions, and no evidence of cellulitis. Neuro: Awake and alert, GCS 15, oriented to person, place, time, and situation. Cranial nerves II-XII grossly intact. Motor strength 5/5 in all extremities. Sensory grossly intact. Cerebellar exam normal. Normal gait. Psych: Awake, alert, with orientation to person, place and time. Behavior, mood, and affect are within normal limits. 21:16 Constitutional: The patient appears in no acute distress, alert, awake, uncomfortable. 21:16 Musculoskeletal/extremity: Extremities: noted in the right arm: sling. Vital Signs: 21:24 BP 186 / 24; Pulse 53 MON; Resp 20 S; Temp 94.5(A); Pulse Ox 100% ; Weight 68.04 kg; ag7 Height 5 ft. 6 in. (167.64 cm); Pain 5/10; 22:00 BP 216 / 94; Pulse 55; Resp 16; Pulse Ox 100% on R/A; jb4 22:56 BP 246 / 106; Pulse 81; Resp 16; Pulse Ox 100% on R/A; jb4 23:34 BP 200 / 115; Pulse 70; Resp 20; Pulse Ox 100% ; jb4 12/20 00:00 BP 204 / 114; Pulse 79; Resp 18; Pulse Ox 97% on R/A; jb4 01:35 BP 234 / 119; Pulse 98; Resp 18; Pulse Ox 96% on R/A; jb4 01:59 BP 197 / 94; Pulse 84; Resp 17; Pulse Ox 95% on R/A; jb4 02:50 BP 185 / 105; Pulse 74; Resp 18; Pulse Ox 94% on R/A; jb4 03:44 BP 111 / 74; Pulse 73; Resp 20; Temp 97.0(TE); Pulse Ox 96% on R/A; jb4 04:15 BP 108 / 70; Pulse 72; Resp 18; Pulse Ox 96% on R/A; jb4 04:45 BP 107 / 69; Pulse 74; Resp 16; Pulse Ox 98% on R/A; jb4 12/19 21:24 Body Mass Index 24.21 (68.04 kg, 167.64 cm) ag7 01:35 ED provider notified 4 MDM: 12/19 23:30 Differential diagnosis: abnormal EKG, acute myocardial infarction, acute pericarditis, mh7 anxiety, coronary artery disease chest wall pain, congestive heart failure costochondritis, esophagitis, gastroesophageal reflux disease (GERD), peptic ulcer disease, pericarditis, pleurisy, pneumonia, pneumothorax. HEART Score: History: Moderately Suspicious (1), ECG: Non specific repolarization disturbance / LBTB / PM (1), Age: > or = 65 years (2), Risk Factors: 1 or 2 risk factors (1), [Hypercholesterolemia] [Hypertension] Troponin: < or = 1 x Normal Limit (0), Total Score = 5. The patient was not given aspirin in the Emergency Department. Patient reports taking aspirin within the past 24 hours. Data reviewed: vital signs, nurses notes, EMS record, old medical records, lab test result(s), cardiac enzymes, CBC, electrolytes, EKG, radiologic studies, plain films. Data interpreted: Pulse oximetry: on room air is 100 %. Interpretation: normal. Counseling: I had a detailed discussion with the patient and/or guardian regarding: the historical points, exam findings, and any diagnostic results supporting the discharge/admit diagnosis, the presence of at least one elevated blood pressure reading (>120/80) during this emergency department visit, lab results, radiology results, the need for further work-up and treatment in the hospital. Response to treatment: the patient's symptoms have mildly improved after treatment. 23:34 Patient medically screened. [facility] 12/19 21:12 Order name: Basic Metabolic Panel; Complete Time: 22:16 [facility] 12/19 21:12 Order name: CBC with Diff; Complete Time: 21:35 [facility] 12/19 21:12 Order name: LFT's; Complete Time: 22:16 [facility] 12/19 21:12 Order name: Magnesium; Complete Time: 22:16 [facility] 12/19 21:12 Order name: NT PRO-BNP; Complete Time: 22:16 [facility] 12/19 21:12 Order name: PT-INR; Complete Time: 21:35 [facility] 12/19 21:12 Order name: Troponin HS; Complete Time: 22:16 [facility] 12/19 21:12 Order name: XRAY Chest (1 view); Complete Time: 22:16 [facility] 12/19 21:12 Order name: ETOH Level; Complete Time: 22:16 [facility] 12/19 21:14 Order name: Lipase; Complete Time: 22:16 [facility] 12/19 22:18 Order name: UDS; Complete Time: 02:30 7 12/19 23:53 Order name: COVID-19 SARS RT PCR (Document "Date of Onset" if Symptomatic); Complete la1 Time: 01:32 12/20 01:43 Order name: Urine Dipstick-Ancillary; Complete Time: 02:30 EDMS 12/20 01:45 Order name: Urine Dipstick-Ancillary EDMS 12/19 21:12 Order name: EKG; Complete Time: 21:13 [facility] 12/19 21:12 Order name: Cardiac monitoring; Complete Time: 21:19 [facility] 12/19 23:51 Order name: CT Aorta for Dissection la1 12/19 21:12 Order name: EKG - Nurse/Tech; Complete Time: 21:19 [facility] 12/19 21:12 Order name: IV Saline Lock; Complete Time: 21:19 [facility] 12/19 21:12 Order name: Labs collected and sent; Complete Time: 21:19 [facility] 12/19 21:12 Order name: O2 Per Protocol; Complete Time: :57 [facility] 12/19 21:12 Order name: O2 Sat Monitoring; Complete Time: 21:19 [facility] 12/19 22:18 Order name: Urine Dipstick-Ancillary (obtain specimen); Complete Time: 01:21 7 Administered Medications: 21:50 Drug: morphine 2 mg Route: IVP; Site: left forearm; ag7 23:00 Follow up: Response: No adverse reaction; Marked relief of symptoms jb4 21:50 Drug: Zofran (Ondansetron) 4 mg Route: IVP; Site: left forearm; ag7 23:00 Follow up: Response: No adverse reaction; Marked relief of symptoms jb4 22:55 Drug: Lopressor (metoprolol) 5 mg Route: IVP; Site: left hand; jb4 22:56 Drug: Potassium Effervescent Tablet 50 mEq Route: PO; jb4 12/20 01:21 Follow up: Response: No adverse reaction jb4 12/19 23:34 Drug: Lopressor (metoprolol) 5 mg Route: IVP; Site: left hand; jb4 23:34 Not Given (Physician Discretion): hydrALAZINE 10 mg IVP once jb4 12/20 00:00 Drug: Lopressor (metoprolol) 5 mg Route: IVP; Site: left hand; jb4 01:21 Follow up: Response: No adverse reaction jb4 00:02 Drug: morphine 4 mg Route: IVP; Site: left hand; jb4 01:20 Follow up: Response: No adverse reaction; Marked relief of symptoms jb4 00:09 Drug: Pepcid (famotidine) 20 mg Route: IVP; Site: left hand; jb4 01:21 Follow up: Response: No adverse reaction jb4 00:29 Drug: Lopressor (metoprolol TARTRATE) 50 mg Route: PO; jb4 01:21 Follow up: Response: No adverse reaction jb4 01:58 Drug: Labetalol 40 mg Route: IVP; Infused Over: 2 mins; Site: left hand; jb4 02:10 Follow up: Response: No adverse reaction; Marked relief of symptoms jb4 02:05 Drug: Labetalol 1 mg/min Route: IVP; Site: left hand; jb4 04:55 Follow up: Response: No adverse reaction; Marked relief of symptoms; Marked relief of jb4 symptoms, infusion continued upon transfer. 02:53 Drug: morphine 4 mg Route: IVP; Site: right antecubital; jb4 04:55 Follow up: Response: No adverse reaction; Marked relief of symptoms jb4 03:04 CANCELLED (Other Intervention Used): morphine 4 mg IVP once; RASS on ADMIN: Combtv4, la1 Very Agttd3, Agttd2, Rstlss1, AlertClm0, Drwsy-1, Lt Sdtn-2, Mod Sdtn-3, Dp Sdtn-4, UnArsble-5 03:30 Drug: Nitroprusside 1 mcg/kg/min Route: IV; Rate: calculated rate; Site: right jb4 antecubital; 04:55 Follow up: IV Status: Infusion continued upon transfer jb4 Disposition Summary: 12/20/21 03:58 Transfer Ordered Transfer Location: [place] [id number] Reason: Higher level of care [facility] Condition: Serious(12/20/21 03:58) [facility] Problem: new(12/20/21 03:58) [facility] Symptoms: have improved(12/20/21 03:58) [facility] Accepting Physician: Dr. Lovelace(12/20/21 04:56) jb4 Diagnosis - Dissection of thoracoabdominal aorta [facility] Forms: - Medication Reconciliation Form [facility] - SBAR form [facility] Signatures: Dispatcher [employer] EDMS Dakotah Hernandez, CANDACE-C CALL CENTER DISPATCHER-Cla1 Rehan Clayton RN RN jb4 Jonny High MD MD 7 Rozina Alaniz RN RN ag7 Corrections: (The following items were deleted from the chart) 03:04 02:53 morphine 4 mg IVP once; RASS on ADMIN: Combtv4, Very Agttd3, Agttd2, Rstlss1, la1 AlertClm0, Drwsy-1, Lt Sdtn-2, Mod Sdtn-3, Dp Sdtn-4, UnArsble-5 ordered. la1 03:56 12/19 23:34 Inpatient Admission [facility] 12/20 03:56 12/19 23:34 Tulio Terrazas mh7 mh7 12/20 03:56 04 23:34 Telemetry/MedSurg (Inpatient) mh7 mh7 12/20 03:56 0402 23:34 Stable mh7 mh7 12/20 03:56 0402 23:34 new mh7 mh7 12/20 03:56 12/19 23:34 have improved mh7 mh7 12/20 03:56 0402 23:34 Standard mh7 mh7 12/20 03:56 0402 23:34 mh7 mh7 12/20 03:56 0402 23:34 Chest pain, unspecified mh7 mh7 12/20 03:56 0402 23:34 Atrial Fibrillation, New Onset mh7 mh7 12/20 03:56 0402 23:34 Hypertensive urgency mh7 mh7 12/20 04:56 03:58 Dr. Lovelace mh7 jb4
--- NOTE | 2021-12-19 23:35 | ER ---
Nurse's Notes [facility] Name: Jaret Larry Age: 66 yrs Sex: Male : 1955 Arrival Date: 12/19/2021 Time: 21:07 Bed 28 Private MD: Diagnosis: Dissection of thoracoabdominal aorta Presentation: 12/19 20:58 Chief complaint: Patient states: Patients state complaint of chest pain that radiate to ag7 the back. 20:58 Method Of Arrival: EMS: [facility] 7 21:24 Coronavirus screen: Client denies travel out of the [place] in the last 14 days. At this ag7 time, the client does not indicate any symptoms associated with coronavirus-19. Ebola Screen: Patient denies exposure to infectious person. Initial Sepsis Screen: Does the patient meet any 2 criteria? Temp <36.0*C (96.8*F)) or > 38.3*C (100.9*F). Does the patient have a suspected source of infection? No. Patient's initial sepsis screen is negative. Risk Assessment: Do you want to hurt yourself or someone else? Patient reports no desire to harm self or others. Onset of symptoms was December 20, 2021. 21:24 Acuity: KAIA 2 ag7 Historical: - Allergies: 22:56 No Known Allergies; jb4 - Home Meds: 22:56 aspirin 81 mg Oral tab [Active]; jb4 - PMHx: 22:56 Alcoholism; Hypertension; Chronic obstructive lung disease; jb4 Screenin/03 00:00 Abuse screen: Denies threats or abuse. Nutritional screening: No deficits noted. jb4 Tuberculosis screening: No symptoms or risk factors identified. Fall Risk None identified. Assessment: 12/19 22:15 Reassessment: Provider notified of critical lab value K+ at 2.9 and elevated blood jb4 pressure. See MAR for orders. 22:45 Reassessment: Patient appears in no apparent distress at this time. Patient and/or jb4 family updated on plan of care and expected duration. Pain level reassessed. Patient is alert, oriented x 3, equal unlabored respirations, skin warm/dry/pink. Pt reports is now reporting abdominal pain. Provider notified. Now new orders at this time. 23:36 Reassessment: Pt continues report abdominal pain. Provider notified. see MAR for orders.jb4 23:59 Reassessment: Assumed primary care Nurse role. jb4 12/20 00:30 Reassessment: Patient appears in no apparent distress at this time. Patient and/or jb4 family updated on plan of care and expected duration. Pain level reassessed. Patient is alert, oriented x 3, equal unlabored respirations, skin warm/dry/pink. Patient states feeling better. 01:58 Reassessment: Patient appears in no apparent distress at this time. Patient and/or jb4 family updated on plan of care and expected duration. Pain level reassessed. Patient is alert, oriented x 3, equal unlabored respirations, skin warm/dry/pink. Reports abdominal pain is still present but not as bad. Patient states feeling better. 02:54 Reassessment: Patient appears in no apparent distress at this time. Patient and/or jb4 family updated on plan of care and expected duration. Pain level reassessed. Patient is alert, oriented x 3, equal unlabored respirations, skin warm/dry/pink. Pt on Trandate drip. provider notified of changes in B/p. drip titrated accordingly. 04:20 Reassessment: Patient appears in no apparent distress at this time. Patient and/or jb4 family updated on plan of care and expected duration. Pain level reassessed. Patient is alert, oriented x 3, equal unlabored respirations, skin warm/dry/pink. Pt reports that the pain is now a minor pain in the abdominal area. Is able to rest in bed with eyes closed. Appears to be more comfortable. report called to DUDLEY Howell at [facility]. 04:35 Reassessment: Systolic pressure dropped to 77. Nitroprusside titrated to 0.5mcg/kg/min jb4 and Labetalol titrated to 1mg/min Systolic pressure returned to 100. Provider notified. instructed to decrease labetalol to 0.5mg/min. Vital Signs: 12/19 21:24 BP 186 / 24; Pulse 53 MON; Resp 20 S; Temp 94.5(A); Pulse Ox 100% ; Weight 68.04 kg; ag7 Height 5 ft. 6 in. (167.64 cm); Pain 5/10; 22:00 BP 216 / 94; Pulse 55; Resp 16; Pulse Ox 100% on R/A; jb4 22:56 BP 246 / 106; Pulse 81; Resp 16; Pulse Ox 100% on R/A; jb4 23:34 BP 200 / 115; Pulse 70; Resp 20; Pulse Ox 100% ; jb4 12/20 00:00 BP 204 / 114; Pulse 79; Resp 18; Pulse Ox 97% on R/A; jb4 01:35 BP 234 / 119; Pulse 98; Resp 18; Pulse Ox 96% on R/A; jb4 01:59 BP 197 / 94; Pulse 84; Resp 17; Pulse Ox 95% on R/A; jb4 02:50 BP 185 / 105; Pulse 74; Resp 18; Pulse Ox 94% on R/A; jb4 03:44 BP 111 / 74; Pulse 73; Resp 20; Temp 97.0(TE); Pulse Ox 96% on R/A; jb4 04:15 BP 108 / 70; Pulse 72; Resp 18; Pulse Ox 96% on R/A; jb4 04:45 BP 107 / 69; Pulse 74; Resp 16; Pulse Ox 98% on R/A; jb4 12/19 21:24 Body Mass Index 24.21 (68.04 kg, 167.64 cm) ag7 01:35 ED provider notified jb4 ED Course: 12/19 21:07 Patient arrived in ED. tw5 21:09 Jonny High MD is Attending Physician. mh7 21:18 Rozina Alaniz, RN is Primary Nurse. ag7 21:31 Triage completed. ag7 21:35 XRAY Chest (1 view) In Process Unspecified. EDMS 23:32 Tulio Terrazas MD is Hospitalizing Provider. mh7 23:59 Primary Nurse role handed off by Rozina Alaniz, RN tw5 23:59 Antonieta Harris is Primary Nurse. tw5 12/20 00:00 Patient has correct armband on for positive identification. Bed in low position. Call jb4 light in reach. Side rails up X 1. clay dry press helper on. Pulse ox on. NIBP on. 01:36 CT Aorta for Dissection In Process Unspecified. EDMS 04:54 No provider procedures requiring assistance completed. Patient transferred, IV remains jb4 in place. Oxygen administration via nasal cannula \T\ 2L/min. Administered Medications: 12/19 21:50 Drug: morphine 2 mg Route: IVP; Site: left forearm; ag7 23:00 Follow up: Response: No adverse reaction; Marked relief of symptoms jb4 21:50 Drug: Zofran (Ondansetron) 4 mg Route: IVP; Site: left forearm; ag7 23:00 Follow up: Response: No adverse reaction; Marked relief of symptoms jb4 22:55 Drug: Lopressor (metoprolol) 5 mg Route: IVP; Site: left hand; jb4 22:56 Drug: Potassium Effervescent Tablet 50 mEq Route: PO; jb4 12/20 01:21 Follow up: Response: No adverse reaction jb4 12/19 23:34 Drug: Lopressor (metoprolol) 5 mg Route: IVP; Site: left hand; jb4 23:34 Not Given (Physician Discretion): hydrALAZINE 10 mg IVP once jb4 12/20 00:00 Drug: Lopressor (metoprolol) 5 mg Route: IVP; Site: left hand; jb4 01:21 Follow up: Response: No adverse reaction jb4 00:02 Drug: morphine 4 mg Route: IVP; Site: left hand; jb4 01:20 Follow up: Response: No adverse reaction; Marked relief of symptoms jb4 00:09 Drug: Pepcid (famotidine) 20 mg Route: IVP; Site: left hand; jb4 01:21 Follow up: Response: No adverse reaction jb4 00:29 Drug: Lopressor (metoprolol TARTRATE) 50 mg Route: PO; jb4 01:21 Follow up: Response: No adverse reaction jb4 01:58 Drug: Labetalol 40 mg Route: IVP; Infused Over: 2 mins; Site: left hand; jb4 02:10 Follow up: Response: No adverse reaction; Marked relief of symptoms jb4 02:05 Drug: Labetalol 1 mg/min Route: IVP; Site: left hand; jb4 04:55 Follow up: Response: No adverse reaction; Marked relief of symptoms; Marked relief of jb4 symptoms, infusion continued upon transfer. 02:53 Drug: morphine 4 mg Route: IVP; Site: right antecubital; jb4 04:55 Follow up: Response: No adverse reaction; Marked relief of symptoms jb4 03:04 CANCELLED (Other Intervention Used): morphine 4 mg IVP once; RASS on ADMIN: Combtv4, la1 Very Agttd3, Agttd2, Rstlss1, AlertClm0, Drwsy-1, Lt Sdtn-2, Mod Sdtn-3, Dp Sdtn-4, UnArsble-5 03:30 Drug: Nitroprusside 1 mcg/kg/min Route: IV; Rate: calculated rate; Site: right jb4 antecubital; 04:55 Follow up: IV Status: Infusion continued upon transfer jb4 Outcome: 12/19 23:34 Decision to Hospitalize by Provider. [facility] 12/20 03:58 ER care complete, transfer ordered by . [facility] 04:54 Transferred by ground EMS to [facility], Transfer form [facility] completed. X-rays sent w/ patient. 04:54 Condition: stable 04:54 Discharge instructions given to patient, Instructed on the need for transfer, Demonstrated understanding of instructions. 04:56 Patient left the ED. jb Signatures: Dispatcher [employer] EDMS Rehan Clayton RN RN jb4 Jonny High MD MD 7 Antonieta Harris tw5 Rozina Alaniz, RN RN 7 Dakotah Hernandez ASSURANCE AUDITOR-Cla1 Corrections: (The following items were deleted from the chart) 01:59 01:52 BP 204 / 114; Pulse 79bpm; Resp 18bpm; Pulse Ox 97% RA; jb jb 04:20 03:44 BP 111 / 74; Pulse 73bpm; Resp 20bpm; Pulse Ox 96% RA; jb4 jb4
[2021-12-20] MEDS ORDERED: MORPHINE 4 MG/ML SYR ONE ×2 (00:02→02:55)
[2021-12-20] MEDS ORDERED: FAMOTIDINE 20 MG/2 ML VIAL IV ONE (00:03)
[2021-12-20] MEDS ORDERED: METOPROLOL TAR 50 MG TAB ONE (00:27)
[2021-12-20 01:34] LABS: Barbiturates NEGATIVE (NEGATIVE); Benzodiazepines NEGATIVE (NEGATIVE); Cocaine NEGATIVE (NEGATIVE); METHAMPHETAM NEGATIVE (NEGATIVE); Methadone NEGATIVE (NEGATIVE); Opiates NEGATIVE (NEGATIVE); Phencyclidine NEGATIVE (NEGATIVE); THC Cannibis NEGATIVE (NEGATIVE)
[2021-12-20 01:43] LABS: Urine Blood 1+ (Negative); Urine Glucose 1+ (Negative); Urine Protein 1+ (Negative)
[2021-12-20] MEDS ORDERED: LABETALOL 20 MG/4ML SYRINGE IV ONE ×6 (01:54→03:46)
[2021-12-20] MEDS ORDERED: NA CHLORIDE 0.9% 250 ML ONE ×2 (02:01→03:50)
[2021-12-20] MEDS ORDERED: NITROPRUSSIDE 50 MG VIAL IV ONE (03:17)
[2021-12-20] MEDS ORDERED: D5W 250 ML IV ONE (03:22)
[2021-12-20 05:15] VITALS: TEMP 97
[2021-12-20 05:18] VITALS: BP 107/69; O2SAT 98
--- NOTE | 2021-12-20 18:42 | RAD REPORT ---
EXAM DESCRIPTION: Angio Aorta For Dissection 12/20/2021 2:00 AM CDT CLINICAL HISTORY: 66 years, Male, Chest pain, back pain, abd pain, HTN COMPARISON: None. TECHNIQUE: Multiple transaxial tomograms from the thoracic and abdominal aorta from the lung apex to the ischial tuberosities performed before and after the administration of large bolus of IV contrast for complete opacification of the thoracic, abdominal aorta and iliac arteries utilizing 3 mm slice thickness at 3 mm interval reconstruction. 2-D and 3-D multiplanar reformats, volume rendering technique and maximum intensity projection images were generated and reviewed. This exam was performed according to our departmental dose-optimization protocol, which includes auto mated exposure control, adjustment of the mA and/or kV according to patient size and/or use of iterat blessing reconstruction technique. 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 The left subclavian art ada demonstrate atheromatous plaque dimension of the proximal portion. There is atherosclerotic disea se at the aortic arch and descending thoracic aorta. There is no evidence for significant dissection and/or involvement of the great vessels. There is no evidence for aneurysm of the ascending thoracic aorta. Minimal mural thickening is identi fied within the anterior lateral wall of the ascending thoracic aorta for which the possibility of sm all mural thrombus within this region and thrombosis/occlusion/obliterated minimal thin lumen of the ascending thoracic aorta cannot be totally excluded. The ascending thoracic aorta measured 3.8 x 3.6 cm on image 48, the aortic arch measured 3.1 cm on im age 30. The proximal descending thoracic aorta measured 3.2 x 2.2 cm on image 43. The distal portion of the thoracic aorta measured 3.1 cm on image 81. Abdominal aorta: The abdominal aorta demonstrate atherosclerotic disease extending into the iliac arteries. There is c ontinuation of the David B dissection down to both external iliac arteries. At the level of the renal artery there is occlusion/thrombosis of the true lumen abdominal aorta exte nding into the common iliac arteries and portions of the proximal aspect external iliac arteries. The celiac trunk originates from the true lumen. The superior mesenteric artery demonstrate partial involvement/dissection along the proximal aspect w ith decreased caliber along the midportion perhaps thrombosed lumen on CT series #501 image -1 . There is atherosclerotic disease at the origin of the celiac trunk and superior mesenteric ar ankit. There is minimal atherosclerotic disease of the right renal artery originating from the false l umen. The right renal artery originates from the true lumen. There is decreased perfusion and atrophy lower pole of the left kidney perhaps related to vascular insult. The inferior mesenteric artery is occluded at its origin with continuation from the branch superior m esenteric artery. There is decrease caliber proximal aspect of the external iliac artery and distal left external iliac artery suggesting focal areas of significant stenosis from most likely thrombosed lumen. Chest: The lung parenchyma demonstrate to be within normal limits. Minimal centrilobular emphysematou s changes. Calcified granuloma anterior right upper lobe. The trachea mainstem bronchus demonstrate t o be unremarkable. There is no pleural/or pericardial effusions. The heart demonstrate left ventricular hypertrophy. Coronary artery calcifications. There is no signi ficant mediastinal and/or hilar lymphadenopathy. The axillary regions demonstrate to be clear. There is fluid-filled mildly distended esophagus. The bone windows demonstrate superior endplate compression deformity at T8. Abdomen and pelvis: The liver demonstrated presence of a central right hepatic lobe cyst measuring ap proximately 3.5 cm. Otherwise the liver, gallbladder, spleen, adrenal glands, pancreas demonstrate to be unremarkable. The kidneys demonstrate no evidence for nephrolithiasis/or hydronephrosis. Delayed imaging demonstrate atrophy of the lower pole of the left kidney with decreased perfusion at the most distal polar branch. The unopacified stomach is fluid-filled distended. The small bowel demonstrate no evidence for signif icant bowel dilatation and/or free air. There is no evidence for significant abnormal mucosal enhance ment/or thickening. Minimal haziness within the peritoneal fat. No evidence for pneumatosis. The left site colon demonstrate diverticulosis. There is a right inguinal hernia containing small bowel with a maximum diameter of the 2.3 cm on image 169/227. No definitive signs of incarceration. The urinary bladder was partially distended. The prostate gland is unremarkable. There is no eviden ce for ascites. No retroperitoneal lymphadenopathy. The bone windows demonstrate no significant abnor malities. 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 Minimal mural thickening is identified within the anterior lateral wall of the ascending thoracic aor ta for which the possibility of small mural thrombus within this region and thrombosis/obliterated mi nimal thin lumen of the ascending thoracic aorta cannot be totally excluded. 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 Decreased perfusion and atrophy of the lower pole of the left kidney with decreased perfusion at the most distal polar branch. Right inguinal hernia containing small bowel with a maximum diameter of the 2.3 cm. No definitive sig ns of incarceration. Superior endplate compression deformity at T8. Old granulomatous disease. Hepatic cyst. THIS REPORT CONTAINS FINDINGS THAT MAY BE CRITICAL TO PATIENT CARE: Called, telephoned, verbal repo rt was given oral to Dr. High at 2:23 AM CDT on 12/20/2021. Electronically signed by: Candelario Cerda MD 12/20/2021 2:27 AM CDT Due to temporary technical issues with the PACS/Fluency reporting system, reports are being signed by the in house radiologists without review as a courtesy to insure prompt reporting. The interpreting radiologist is fully responsible for the content of the report.
--- NOTE | 2021-12-21 11:16 | EKG ---
Test Date: 2021-12-19 Test Time: 21:03:23 Sailing Master: ERICA MEASUREMENT RESULTS: Intervals: Rate: 75 MT: QRSD: 84 QT: 456 QTc: 509 [place]: P: MT: QRS: 42 T: -15 INTERPRETIVE STATEMENTS: Atrial fibrillation Voltage criteria for left ventricular hypertrophy Marked ST abnormality, possible inferior subendocardial injury Prolonged QT Abnormal ECG Compared to ECG 05/05/2019 23:54:08 Left ventricular hypertrophy now present Prolonged QT interval now present Sinus tachycardia no longer present ST (T wave) deviation still present Electronically Signed On 12-21-21 11:12:48 CDT by Jesus Alberto Weber
== END 2021-12-20 04:56 | disposition short-term general hospital (02) ==
LOC: ER 21:05
DX: I71.03 Dissection of thoracoabdominal aorta (principal); R11.0 Nausea; I10 Essential (primary) hypertension; F10.20 Alcohol dependence, uncomplicated; Z79.82 Long term (current) use of aspirin; Z20.822 Contact with and (suspected) exposure to COVID-19
CPT/HCPCS: 93005; 85025; 80048; 36415; 80320; 83735; 85610; 80076; 81003; 84484; 83690; 83880; 80307; 71275; 74175; 71045; 99285; U0003; Q9967; J7060; J7050 ×2; J2405